=== PATIENT | male | born 1970 | race Caucasian/White ===

== ENCOUNTER 2017-04-08 06:15 | Emergency (ER) | payer MEDICAID ==
[~2017-04-08] VITALS: Ht 182.9 cm; Wt 86.3 kg
[~2017-04-08 06:15] MED LIST: NONE PER PT
[2017-04-08 06:16] VITALS: BP 113/73
[2017-04-08] MEDS ORDERED: HYDROcodone/APAP 5/325 TABLET ONE (06:33)
[2017-04-08] MEDS ORDERED: LIDOCAINE 1%, 20ML ONE (06:39)
[2017-04-08] MEDS ORDERED: LIDOCAINE 1%, 20ML SQ ONE (07:00)
[2017-04-08] MEDS ORDERED: HYDROcodone/APAP 5/325 TABLET PO ONE (07:00)
== END 2017-04-08 08:01 | disposition home or self-care (01) ==
LOC: ED 06:37
DX: L03.116 Cellulitis of left lower limb (principal)
CPT/HCPCS: 10060; 99283